=== PATIENT | male | born 1985 | race Caucasian/White ===

== ENCOUNTER 2019-02-27 18:18 | Inpatient (IN) ==
[2019-02-27] MEDS ORDERED: Isovue-370 500 ML BOTTLE IVP ONE (18:43)
--- NOTE | 2019-02-27 18:46 | Emergency Department Note ---
Disposition Clinical Impression: Pulmonary embolism Qualifiers: Pulmonary embolism type: saddle Chronicity: acute Acute cor pulmonale presence: without acute cor pulmonale Qualified Code(s): I26.92 - Saddle embolus of pulmonary artery without acute cor pulmonale Disposition: Admitted As Inpatient Condition: Good Referrals: Paola Bob CNP [Primary Care Provider] - Forms: ED Satisfaction Letter Time of Disposition: 22:12 General Adult HPI - General Chief complaint: ED Syncope Stated complaint: syncopal episode Time Seen by Provider: 02/27/19 18:21 Source: patient, family Limitations: no limitations Nursing Notes Reviewed: Yes Vital Signs Reviewed: Yes - History of Present Illness Pain Scale: 4 - Related Data Home Medications Medication Instructions Recorded Confirmed Aspirin [Adult Aspirin] 81 mg PO DAILY 02/27/19 02/27/19 Ibuprofen [Motrin] 800 mg PO Q6H PRN 02/27/19 02/27/19 Allergies Allergy/AdvReac Type Severity Reaction Status Date / Time No Known Allergies Allergy Verified 02/27/19 18:23 Past Medical History - Past Medical History Medical history: Reports: DVT Psychiatric history: Reports: no psych history - Social History Smoking Status: Never smoker Smokeless Tobacco Status: No Alcohol use: Reports: none Physical Exam - General Limitations: no limitations General appearance: alert, in no apparent distress Course Vital Signs Temperature 97.9 F 02/27/19 18:21 Pulse Rate 90 02/27/19 18:21 Respiratory Rate 16 02/27/19 18:21 Blood Pressure 120/85 02/27/19 18:21 O2 Sat by Pulse Oximetry 92 02/27/19 18:21 Temperature 97.9 F 02/27/19 18:21 Pulse Rate 82 02/27/19 20:45 Respiratory Rate 14 02/27/19 20:45 Blood Pressure 122/70 02/27/19 20:45 O2 Sat by Pulse Oximetry 98 02/27/19 20:45 Oxygen Delivery Oxygen Delivery Room Air Medical Decision Making - Lab Data Result diagrams: 02/27/19 18:33 02/27/19 18:33 Lab Results 02/27/19 02/27/19 02/27/19 Range/Units 18:33 18:33 18:33 WBC 12.6 H (4.3-11.1) K/mcL RBC 5.31 (4.19-5.50) M/mcL Hgb 15.8 (12.9-16.9) g/dL Hct 46.0 (37.5-50.1) % MCV 86.6 (83.0-100.0) fL MCH 29.8 (28.0-33.3) pg MCHC 34.3 (31.6-35.5) g/dL RDW 11.9 (11.5-14.5) % Plt Count 174 (140-400) K/mcL MPV 9.8 (9.4-12.4) fL Immature Gran % 0.4 (0-4) % Seg Neutrophils % 73.1 % Lymphocytes % 15.1 % Monocytes % 6.3 % Eosinophils % 4.8 % Basophils % 0.3 % Neutrophils # 9.2 H (1.6-8.9) K/mcL Lymphocytes # 1.9 (0.6-4.6) K/mcL Monocytes # 0.8 (0.0-1.3) K/mcL Eosinophils # 0.6 (0.0-0.6) K/mcL Basophils # 0.0 (0.0-0.2) K/mcL PT (9.4-12.1) Seconds INR Heparin Anti-Xa, Unfract (0.30-0.70) IU/mL Sodium 138 (136-145) mEq/L Potassium 3.8 (3.5-5.1) mEq/L Chloride 102 (98-107) mEq/L Carbon Dioxide 26 (23-29) mEq/L BUN 17 (6-20) mg/dL Creatinine 1.07 (0.70-1.30) mg/dL Est GFR ( Amer) > 60 (> 60) Est GFR (Non-Af Amer) > 60 (> 60) BUN/Creatinine Ratio 16 (6-26) Glucose 92 (70-105) mg/dL Calculated Osmolality 287 (280-300) Calcium 9.6 (8.6-10.3) mg/dL Troponin I < 0.03 (< 0.04) ng/mL B-Natriuretic Peptide 17 (Less than 100) pg/mL 02/27/19 Range/Units 18:35 WBC (4.3-11.1) K/mcL RBC (4.19-5.50) M/mcL Hgb (12.9-16.9) g/dL Hct (37.5-50.1) % MCV (83.0-100.0) fL MCH (28.0-33.3) pg MCHC (31.6-35.5) g/dL RDW (11.5-14.5) % Plt Count (140-400) K/mcL MPV (9.4-12.4) fL Immature Gran % (0-4) % Seg Neutrophils % % Lymphocytes % % Monocytes % % Eosinophils % % Basophils % % Neutrophils # (1.6-8.9) K/mcL Lymphocytes # (0.6-4.6) K/mcL Monocytes # (0.0-1.3) K/mcL Eosinophils # (0.0-0.6) K/mcL Basophils # (0.0-0.2) K/mcL PT 11.4 (9.4-12.1) Seconds INR 1.0 Heparin Anti-Xa, Unfract 0.05 L (0.30-0.70) IU/mL Sodium (136-145) mEq/L Potassium (3.5-5.1) mEq/L Chloride (98-107) mEq/L Carbon Dioxide (23-29) mEq/L BUN (6-20) mg/dL Creatinine (0.70-1.30) mg/dL Est GFR ( Amer) (> 60) Est GFR (Non-Af Amer) (> 60) BUN/Creatinine Ratio (6-26) Glucose (70-105) mg/dL Calculated Osmolality (280-300) Calcium (8.6-10.3) mg/dL Troponin I (< 0.04) ng/mL B-Natriuretic Peptide (Less than 100) pg/mL Critical Care Time Critical Care Time: Yes Total Critical Care Time: 40 Attestation: Critical care performed: Time is exclusive of separately billable procedures. Time includes: direct patient care, patient reassessment, coordination of patient care, interpretation of data (laboratory data, radiology data, and respiratory data), review of patient's medical records, medical consultation and documentation of patient care. Procedures included in critical care time: Procedures excluded from critical care time: Attestation Statement - Attestation Attestation: I examined this patient and my medical decision-making was reviewed with the Resident Physician. I agree with the documented findings, disposition and treatment plan as described except to the extent set forth below. Patient to the ED with a syncopal episode. Patient states he got home from work. He felt lightheaded acute is going to pass out. He laid on the ground. He states he woke up after that like he had a dream. No chest pain. He recently was diagnosed with a superficial clot in his right leg and is been taken an aspirin. On exam he is in no distress. Clear lungs. Heart rate in the 90s. Plan. Cardiac workup with CTA chest. CTA reveals a saddle embolus on the right. No signs of right heart strain. His troponin is negative. We will check a BNP. Starting heparin. Patient had an EKG that was reviewed with the resident. No acute ischemic changes. incomplete right bundle branch block which is not new. Patient's admission delayed secondary to the hospitalist requesting echocardiogram. Echo reviewed. Hospitalist accepts for admission.
[2019-02-27 19:06] LABS: Basophils % 0.3 %; Eosinophils # 0.6 K/mcL (0.0-0.6); Eosinophils % 4.8 %; Hemoglobin 15.8 g/dL (12.9-16.9); Immature Granulocytes % 0.4 % (0-4); Lymphocytes # 1.9 K/mcL (0.6-4.6); Lymphocytes % 15.1 %; Mean Corpuscular HGB Conc 34.3 g/dL (31.6-35.5); Mean Corpuscular Hemoglobin 29.8 pg (28.0-33.3); Mean Corpuscular Volume 86.6 fL (83.0-100.0); Mean Platelet Volume 9.8 fL (9.4-12.4); Monocytes # 0.8 K/mcL (0.0-1.3); Monocytes % 6.3 %; Neutrophils # 9.2 K/mcL (1.6-8.9); Platelet Count 174 K/mcL (140-400); Red Blood Count 5.31 M/mcL (4.19-5.50); Red Cell Distribution Width 11.9 % (11.5-14.5); Segmented Neutrophils % 73.1 %; White Blood Count 12.6 K/mcL (4.3-11.1)
[2019-02-27 19:22] LABS: BUN/Creatinine Ratio 16 (6-26); Blood Urea Nitrogen 17 mg/dL (6-20); Calcium 9.6 mg/dL (8.6-10.3); Carbon Dioxide 26 mEq/L (23-29); Chloride 102 mEq/L (98-107); Glucose 92 mg/dL (70-105); Osmolality,Calculated 287 (280-300); Potassium 3.8 mEq/L (3.5-5.1); Sodium 138 mEq/L (136-145); Troponin I < 0.03 ng/mL (< 0.04); eGFR For African Americans > 60 (> 60); eGFR For Non-African Americans > 60 (> 60)
[2019-02-27] MEDS ORDERED: *HR* Heparin 5,000 UNIT/ML VIAL IVP ONE (19:37)
[2019-02-27] MEDS ORDERED: *HR* Heparin 5,000 UNIT/ML VIAL IVP PRN ×2 (19:37)
[2019-02-27] MEDS ORDERED: Heparin 25,000 UNIT/250 ML D5W 25,000 UNIT/250 ML IV.SOLN IVC SCH (19:45)
[2019-02-27 19:56] LABS: Prothrombin Time 11.4 Seconds (9.4-12.1)
[2019-02-27 19:59] LABS: Heparin anti-factor XA UFH 0.05 IU/mL (0.30-0.70)
--- NOTE | 2019-02-27 20:24 | Emergency Department Note ---
Disposition Clinical Impression: Pulmonary embolism Qualifiers: Pulmonary embolism type: saddle Chronicity: acute Acute cor pulmonale presence: without acute cor pulmonale Qualified Code(s): I26.92 - Saddle embolus of pulmonary artery without acute cor pulmonale Disposition: Still a Patient Condition: Good Referrals: Paola Bob CNP [Primary Care Provider] - Forms: ED Satisfaction Letter Time of Disposition: 21:59 General Adult HPI - General Chief complaint: ED Syncope Stated complaint: syncopal episode Time Seen by Provider: 02/27/19 18:21 Source: patient, family Limitations: no limitations Nursing Notes Reviewed: Yes Vital Signs Reviewed: Yes - History of Present Illness HPI Narrative: 33-year-old male presents emergency department with concern for single episode patient patient was recently diagnosed with superficial venous thrombus in the r ight lower extremity. Reports that today, he passed out, laid down to his bed, and woke up thinking he was dreaming. Patient denies any chest pain, shortness of breath, however D does state there is something funny feeling in the right side of his chest wall. Patient not currently on any blood thinning medications. Pain Scale: 4 - Related Data Home Medications Medication Instructions Recorded Confirmed Aspirin [Adult Aspirin] 81 mg PO DAILY 02/27/19 02/27/19 Ibuprofen [Motrin] 800 mg PO Q6H PRN 02/27/19 02/27/19 Allergies Allergy/AdvReac Type Severity Reaction Status Date / Time No Known Allergies Allergy Verified 02/27/19 18:23 All systems ED: reviewed and negative except as stated. Review of Systems: As Per HPI Constitutional: Denies: fever Cardiovascular: Reports: syncope. Denies: chest pain, palpitations Respiratory: Denies: cough, dyspnea Gastrointestinal: Denies: abdominal pain, nausea, vomiting Genitourinary: Denies: urgency, dysuria, frequency Musculoskeletal: Denies: back pain Past Medical History - Past Medical History Attestation: Yes The following information was validated with the patient. Medical history: Reports: DVT Psychiatric history: Reports: no psych history - Social History Smoking Status: Never smoker Smokeless Tobacco Status: No Alcohol use: Reports: none Physical Exam - General Limitations: no limitations General appearance: alert, in no apparent distress - Head Head exam: normocephalic - Eye Eye exam: Present: EOMI - ENT ENT exam: mucous membranes moist - Neck Neck exam: Present: trachea midline - Chest Chest inspection: Present: symmetric chest wall rise - Respiratory Respiratory exam: Present: normal lung sounds bilaterally. Absent: respiratory distress, accessory muscle use - Cardiovascular Cardiovascular exam: Present: regular rate, normal rhythm, normal heart sounds - Abdominal Exam Abdominal exam: Present: soft, Non-Tender. Absent: distention, guarding, rebound, rigidity - Extremities Exam Extremities exam: Present: normal capillary refill - Back Exam Back exam: Present: full ROM - Neurological Exam Neurological exam: Present: alert, oriented X3 - Psychiatric Psychiatric exam: Present: normal affect, normal mood - Skin Skin exam: Present: warm, dry, intact, normal color. Absent: rash Course Vital Signs Temperature 97.9 F 02/27/19 18:21 Pulse Rate 90 02/27/19 18:21 Respiratory Rate 16 02/27/19 18:21 Blood Pressure 120/85 02/27/19 18:21 O2 Sat by Pulse Oximetry 92 02/27/19 18:21 Temperature 97.9 F 02/27/19 18:21 Pulse Rate 82 02/27/19 20:45 Respiratory Rate 14 02/27/19 20:45 Blood Pressure 122/70 02/27/19 20:45 O2 Sat by Pulse Oximetry 98 02/27/19 20:45 Oxygen Delivery Oxygen Delivery Room Air Medical Decision Making - [facility] Narrative Medical decision making narrative: 33-year-old male presents [facility] [place] [facility] concern for episode of syncope in the setting of having a superficial venous thrombus. Patient hemodynamically stable throughout his stay. Not hypoxic, not tachycardic, not hypotensive. We obtain a CT angiogram of the chest and patient has evidence of saddle pulmonary embolus. Patient started on heparin here in the emergency department. I called the hospitalist for admission and he wanted stat echocardiogram to rule out ri ght heart strain prior to admission. As of now, patient does not have any evidence of massive PE as he is hemodynamically stable. Also, he does not have an elevated troponin or BNP which are also markers for right heart strain. Chest CTA 02/27/19 18:44 IMPRESSION: Saddle pulmonary embolism extending bilaterally involving the upper and lower lobe pulmonary arteries. At this time there is no evidence of right heart strain. Findings discussed with Dr. Cuevas from the ER department on 02/27/2019 at 7:30 p.m. D/ : / 02/27/2019 19:33:08 Lauren Fisher MD / danae Interpreting Provider: Lauren Fisher MD Echocardiogram 02/27/19 20:10 Impressions: LVEF 60%. Mild left ventricular diastolic dysfunction. Normal right ventricular structure and function. Moderate tricuspid regurgitation. Mild pulmonic regurgitation. Moderate to severe pulmonary hypertension. Left Ventricular Wall Motion: Rest Echo Findings All wall segments showed normal motion. Findings: Study Quality * Technically adequate exam. ECG Findings * Normal sinus rhythm. Left Ventricle * LVEF 60%. * Normal LV chamber size, wall thickness and function. * Mild left ventricular diastolic dysfunction. Right Ventricle * Normal right ventricular structure and function. Left Atrium * Normal left atrial size. Right Atrium * Normal right atrial size. Aortic Valve * No aortic regurgitation. * Trileaflet aortic valve. * No aortic stenosis. Mitral Valve * No mitral regurgitation. * Normal mitral valve structure. * No mitral stenosis. Tricuspid Valve * Normal tricuspid valve structure. * Moderate tricuspid regurgitation. * Estimated RA pressure is 3 mmHg. * Estimated RVSP is 63 mmHg. * Moderate to severe pulmonary hypertension. Pulmonic Valve * Normal pulmonic valve structure. * Mild pulmonic regurgitation. Pulmonary Artery * Normal visualized portions of the main pulmonary artery. Aorta * Normally sized aortic root. Pericardium * There is no pericardial effusion present. Interatrial Septum * Interatrial septum not well evaluated. IVC * Normal IVC dimensions and inspiratory collapse. Chest CTA 02/27/19 18:44 IMPRESSION: Saddle pulmonary embolism extending bilaterally involving the upper and lower lobe pulmonary arteries. At this time there is no evidence of right heart strain. Findings discussed with Dr. Cuevas from the ER department on 02/27/2019 at 7:30 p.m. D/ : / 02/27/2019 19:33:08 Lauren Fisher MD / danae Interpreting Provider: Lauren Fisher MD - Lab Data Result diagrams: 02/27/19 18:33 02/27/19 18:33 Lab Results 02/27/19 02/27/19 02/27/19 Range/Units 18:33 18:33 18:33 WBC 12.6 H (4.3-11.1) K/mcL RBC 5.31 (4.19-5.50) M/mcL Hgb 15.8 (12.9-16.9) g/dL Hct 46.0 (37.5-50.1) % MCV 86.6 (83.0-100.0) fL MCH 29.8 (28.0-33.3) pg MCHC 34.3 (31.6-35.5) g/dL RDW 11.9 (11.5-14.5) % Plt Count 174 (140-400) K/mcL MPV 9.8 (9.4-12.4) fL Immature Gran % 0.4 (0-4) % Seg Neutrophils % 73.1 % Lymphocytes % 15.1 % Monocytes % 6.3 % Eosinophils % 4.8 % Basophils % 0.3 % Neutrophils # 9.2 H (1.6-8.9) K/mcL Lymphocytes # 1.9 (0.6-4.6) K/mcL Monocytes # 0.8 (0.0-1.3) K/mcL Eosinophils # 0.6 (0.0-0.6) K/mcL Basophils # 0.0 (0.0-0.2) K/mcL PT (9.4-12.1) Seconds INR Heparin Anti-Xa, Unfract (0.30-0.70) IU/mL Sodium 138 (136-145) mEq/L Potassium 3.8 (3.5-5.1) mEq/L Chloride 102 (98-107) mEq/L Carbon Dioxide 26 (23-29) mEq/L BUN 17 (6-20) mg/dL Creatinine 1.07 (0.70-1.30) mg/dL Est GFR ( Amer) > 60 (> 60) Est GFR (Non-Af Amer) > 60 (> 60) BUN/Creatinine Ratio 16 (6-26) Glucose 92 (70-105) mg/dL Calculated Osmolality 287 (280-300) Calcium 9.6 (8.6-10.3) mg/dL Troponin I < 0.03 (< 0.04) ng/mL B-Natriuretic Peptide 17 (Less than 100) pg/mL 02/27/19 Range/Units 18:35 WBC (4.3-11.1) K/mcL RBC (4.19-5.50) M/mcL Hgb (12.9-16.9) g/dL Hct (37.5-50.1) % MCV (83.0-100.0) fL MCH (28.0-33.3) pg MCHC (31.6-35.5) g/dL RDW (11.5-14.5) % Plt Count (140-400) K/mcL MPV (9.4-12.4) fL Immature Gran % (0-4) % Seg Neutrophils % % Lymphocytes % % Monocytes % % Eosinophils % % Basophils % % Neutrophils # (1.6-8.9) K/mcL Lymphocytes # (0.6-4.6) K/mcL Monocytes # (0.0-1.3) K/mcL Eosinophils # (0.0-0.6) K/mcL Basophils # (0.0-0.2) K/mcL PT 11.4 (9.4-12.1) Seconds INR 1.0 Heparin Anti-Xa, Unfract 0.05 L (0.30-0.70) IU/mL Sodium (136-145) mEq/L Potassium (3.5-5.1) mEq/L Chloride (98-107) mEq/L Carbon Dioxide (23-29) mEq/L BUN (6-20) mg/dL Creatinine (0.70-1.30) mg/dL Est GFR ( Amer) (> 60) Est GFR (Non-Af Amer) (> 60) BUN/Creatinine Ratio (6-26) Glucose (70-105) mg/dL Calculated Osmolality (280-300) Calcium (8.6-10.3) mg/dL Troponin I (< 0.04) ng/mL B-Natriuretic Peptide (Less than 100) pg/mL - EKG Data EKG #1 EKG attestation: Yes I reviewed and interpreted this EKG. EKG results narrative: 18:33 Heart rate 85 bpm, CO interval 101 172 ms, QRS scientologist 98 mode says, QTC 430, normal axis. Sinus rhythm with no ischemic ST changes. Some criteria for right bundle-branch block. Similar to previous ECG.
[2019-02-27] MEDS ORDERED: Naloxone 0.4 MG/ML INJ IVP PRN (23:36)
[2019-02-27] MEDS ORDERED: Acetaminophen 325 MG TABLET PO PRN (23:36)
--- NOTE | 2019-02-27 23:42 | Internal Med History&Physical ---
<Leigh Ann Ruiz - Last Filed: 02/28/19 03:58> Date of Encounter: 02/28/19 Time of Encounter: 23:41 Internal Medicine - H&P: HPI Chief complaint: Syncope Admitted From: Emergency Dept Plans for Post Hospital Care: Home History of present illness: Mr. Fermin is a 33 year old male with past medical history of Gerd who presented to [facility] complaining of a syncopal event. Patient reported that today he noticed that his right calf was hurting more with the feeling of a rock in it. When he got home from work he walked up the stairs to his home in felt short of breath, lightheaded, and palpitations. Additionally he has had a cough with clear sputum production for 3 days. He felt like he was going to pass out so he laid down on the ground. He then woke up later and knew that he had passed out while laying on the ground. He then went to the ED to be evaluated. Patient reported that the right calf pain had initially started on February 17, 2019 after he driven home 13 hours from [place]. He only made stops for gas but did not ambulate besides that. Since then he started having right calf pain for which she saw his PCP last Wednesday whom did a right lower extremity ultrasound and saw that he had a superficial thrombosis. He was told to take aspirin and ibuprofen. It did seem to get better until today. He has never had a blood clot before. He denied chest pain, fevers, chills, wheezing, abdominal pain, headache. His father had develop blood clots in his legs after a surgical procedure later in life. There is a questionable history of his half-sister may have had a blood clot in her legs in the past. No family history of sudden . He denies smoking cigarettes or drug use. He has rare alcohol use. He is a full code. Initial vitals in the ED were 97.9F, HR 90, RR 16, BP 120/85, SpO2 92% on room air. WBC 12.6, INR 1.0. BMP, troponin, BNP unremarkable. -Chest CTA demonstrated saddle pulmonary embolism extending bilaterally involving the upper and lower lobe pulmonary arteries. No evidence of right heartstring. -TTE: EF= 60%, mild diastolic dysfunction, moderate to severe pulmonary hypertension. -In the ED he was started on a heparin drip. UPDATE: In the ICU while on the heparin drip the patient went into PEA and CPR was initiated. He quickly had return of pulse in 10 seconds. He also became bradycardiac with heart rate in the 40s requiring atropine. It was determined that the patient was hemodynamically unstable with the saddle pulmonary embolism. The patient's and family was called to the bedside and he was alert and oriented at that time so it was discussed with them that he would need life flighted to [facility] for continued care with TPA and possible embolectomy of the clot. They agreed. The ICU log rafter was contacted who agreed that TPA should be initiated. [facility] was contacted and had recommended that the patient be intubated and TPA initiated prior to transfer since he was unstable. This information was told to the family and patient whom agreed and signed consent for intubation and initiation of TPA. The risks and benefits of TPA such as bleeding including intracranial hemorrhage and possibility were discussed. A head CT was performed prior to TPA administration which showed no acute intracranial abnormality. IV access was initiated including an IO. The patient was intubated. The patient was then transferred by life flight to [facility]. Past Med Surg Social Fam HX - Past Medical History Attestation: Yes The following information was validated with the patient. Source: patient Medical history: DVT, GERD Psychiatric history: no psych history - Past Surgical History Surgical History: non-contributory - Social History Smoking Status: Never smoker Smokeless Tobacco Status: No Alcohol use: none - Family History Father Hx Family Medical Disorders: Yes (DVT) Internal Medicine - H&P: Meds Aspirin [Adult Aspirin] 81 mg PO DAILY 02/27/19 [History] Ibuprofen [Motrin] 800 mg PO Q6H PRN 02/27/19 [History] Allergy/AdvReac Type Severity Reaction Status Date / Time No Known Allergies Allergy Verified 02/27/19 18:23 All Systems PM: A 10-system review of systems was performed and is negative for pertinent findings except as documented above in the HPI. - Constitutional Constitutional: no chills, no fever(s) - EENT Eyes: no change in vision - Cardiovascular Cardiovascular ROS IM: lightheadedness, palpitations, syncope, no chest pain - Respiratory Respiratory: cough, dyspnea - Gastrointestinal Gastrointestinal: no abdominal pain, no nausea, no vomiting - Musculoskeletal Musculoskeletal ROS IM: muscle cramps (Right leg), no joint swelling - Integumentary Integumentary IM: no rash, no skin ulcer - Neurological Neurological ROS: no frequent falls, no headache(s), no loss of vision - Constitutional Vitals: Temp Pulse Resp BP Pulse Ox 97.9 F 88 16 127/87 97 02/27/19 18:21 02/27/19 22:59 02/27/19 23:09 02/27/19 23:09 02/27/19 22:59 Exam: Gen.: Vitals noted. No acute distress. AAOx3 HEENT: oropharynx clear, Normocephalic, atraumatic Cardiac: RRR, no murmur, +S1/S2 Pulmonary: CTA bilaterally, no wheezes, rales or rhonchi, equal chest expansion Abdomen: soft, nontender, Bowel sounds noted, no guarding MSK: ROM intact, no joint swelling noted Extremities: right calf mildly warm, no erythema, no BLE edema, nontender calf, no cyanosis or clubbing Neuro: A&Ox3, moves all extremities, no focal deficits Psych: Appropriate mood and behavior Internal Med - H&P Results - Labs CBC & Chem 7: 02/28/19 01:03 02/28/19 01:24 Labs: Short CBC 02/27/19 Range/Units 18:33 WBC 12.6 H (4.3-11.1) K/mcL Hgb 15.8 (12.9-16.9) g/dL Hct 46.0 (37.5-50.1) % Plt Count 174 (140-400) K/mcL Neutrophils # 9.2 H (1.6-8.9) K/mcL BMP 02/27/19 18:33 Sodium 138 Potassium 3.8 Chloride 102 Carbon Dioxide 26 BUN 17 Creatinine 1.07 Glucose 92 Calcium 9.6 Cardiac Enzymes 02/27/19 Range/Units 18:33 Troponin I < 0.03 (< 0.04) ng/mL - Impressions ITS Impressions Chest CTA 02/27/19 18:44 IMPRESSION: Saddle pulmonary embolism extending bilaterally involving the upper and lower lobe pulmonary arteries. At this time there is no evidence of right heart strain. Findings discussed with Dr. Cuevas from the ER department on 02/27/2019 at 7:30 p.m. D/ /27/2019 19:33:08 Lauren Fisher MD / danae Interpreting Provider: Lauren Fisher MD Echocardiogram 02/27/19 20:10 Impressions: LVEF 60%. Mild left ventricular diastolic dysfunction. Normal right ventricular structure and function. Moderate tricuspid regurgitation. Mild pulmonic regurgitation. Moderate to severe pulmonary hypertension. Left Ventricular Wall Motion: Rest Echo Findings All wall segments showed normal motion. Findings: Study Quality * Technically adequate exam. ECG Findings * Normal sinus rhythm. Left Ventricle * LVEF 60%. * Normal LV chamber size, wall thickness and function. * Mild left ventricular diastolic dysfunction. Right Ventricle * Normal right ventricular structure and function. Left Atrium * Normal left atrial size. Right Atrium * Normal right atrial size. Aortic Valve * No aortic regurgitation. * Trileaflet aortic valve. * No aortic stenosis. Mitral Valve * No mitral regurgitation. * Normal mitral valve structure. * No mitral stenosis. Tricuspid Valve * Normal tricuspid valve structure. * Moderate tricuspid regurgitation. * Estimated RA pressure is 3 mmHg. * Estimated RVSP is 63 mmHg. * Moderate to severe pulmonary hypertension. Pulmonic Valve * Normal pulmonic valve structure. * Mild pulmonic regurgitation. Pulmonary Artery * Normal visualized portions of the main pulmonary artery. Aorta * Normally sized aortic root. Pericardium * There is no pericardial effusion present. Interatrial Septum * Interatrial septum not well evaluated. IVC * Normal IVC dimensions and inspiratory collapse. - Assessment and Plan (1) Pulmonary embolism Status: Acute Assessment and plan: Likely provoked complicated saddle pulmonary embolism causing moderate to severe pulmonary hypertension. Patient had a 13hr drive from [place] with only gas stop on Feb 17, 2019. That is when his right leg pain started and last to same he had a right lower extremity ultrasound that showed a superficial thrombosis. Denied chest pain. Today right calf pain has worsened and when he walked up the steps to his home he became short of breath and lightheaded with feeling of passing out so he laid on the ground. He reported syncopal episode while laying on the ground. -No previous history of blood clots, recent surgery. Father had DVT after surgery. Questionable history if half-sister had DVT. No known family history of blood clotting disorders. -HR 82, BP 122/70, SpO2 98% on room air -WBC 12.6, afebrile -troponin <0.03 -Chest CTA demonstrated saddle pulmonary embolism extending bilaterally involving the upper and lower lobe pulmonary arteries. No evidence of right hea rtstring. -TTE: EF= 60%, mild diastolic dysfunction, moderate to severe pulmonary hypertension. plan: -continue heparin drip -continue cardiac telemetry and pulse ox -supplemental oxygen PRN -may consider outpatient testing for blood clotting disorders Qualifiers: Pulmonary embolism type: saddle Chronicity: acute Acute cor pulmonale presence: without acute cor pulmonale Qualified Code(s): I26.92 - Saddle embolus of pulmonary artery without acute cor pulmonale (2) Syncope Status: Acute Assessment and plan: Secondary to saddle pulmonary embolism. After walking up the stairs the patient became lightheaded and short of breath and felt like he was going to pass out. He laid down on the ground and then later woke up. He believed he passed out. -Plan as above Qualifiers: Syncope type: unspecified Qualified Code(s): R55 - Syncope and collapse (3) Pulmonary hypertension Status: Acute Assessment and plan: Patient has moderate to severe pulmonary hypertension demonstrated by echocardi ogram. This is likely secondary to newly diagnosed saddle pulmonary embolism. -Chest CTA demonstrated saddle pulmonary embolism extending bilaterally involving the upper and lower lobe pulmonary arteries. No evidence of right heartstring. -TTE: EF= 60%, mild diastolic dysfunction, moderate to severe pulmonary hypertension. -Anticoagulation and plan as above -patient may need follow-up for pulmonary hypertension (4) GERD (gastroesophageal reflux disease) Status: Acute Assessment and plan: Patient has known history of Gerd. Continue omeprazole. Qualifiers: Esophagitis presence: esophagitis presence not specified Qualified Code(s): K21.9 - Gastro-esophageal reflux disease without esophagitis - Time Spent With Patient Total time spent is greater than 50% in coordination of care (as documented) at patient's floor/unit and/or counseling patient: - VTE Reasons for not Prescribing Prophylaxis: Not indicated-Anticoagulated or INR therapeutic <Austin Sylvester - Last Filed: 02/28/19 07:13> Date of Encounter: 02/28/19 All Systems PM: A 10-system review of systems was performed and is negative for pertinent findings except as documented above in the HPI. - Constitutional Vitals: Temp Pulse Resp BP Pulse Ox 99.4 F 88 15 131/87 93 02/28/19 00:00 02/28/19 00:00 02/28/19 00:00 02/28/19 00:00 02/28/19 00:00 Internal Med - H&P Results - Labs CBC & Chem 7: 02/28/19 01:03 02/28/19 01:24 Labs: Short CBC 02/27/19 02/28/19 Range/Units 18:33 01:03 WBC 12.6 H 13.2 H (4.3-11.1) K/mcL Hgb 15.8 13.4 D (12.9-16.9) g/dL Hct 46.0 39.3 (37.5-50.1) % Plt Count 174 178 (140-400) K/mcL Neutrophils # 9.2 H 8.6 (1.6-8.9) K/mcL BMP 02/27/19 02/28/19 18:33 01:24 Sodium 138 140 Potassium 3.8 3.5 Chloride 102 105 Carbon Dioxide 26 23 BUN 17 14 Creatinine 1.07 0.96 Glucose 92 142 H Calcium 9.6 9.3 Cardiac Enzymes 02/27/19 02/28/19 Range/Units 18:33 01:24 Troponin I < 0.03 < 0.03 (< 0.04) ng/mL Liver Function 02/28/19 Range/Units 01:24 Total Bilirubin 0.9 (0.3-1.0) mg/dL AST 17 (13-39) Units/L ALT 18 (7-52) Units/L Alkaline Phosphatase 53 (34-104) Units/L Albumin 4.3 (3.5-5.7) g/dL - ABG Interpretation ABG results: 02/28/19 01:03 ABG pH 7.44 ABG pCO2 40 ABG pO2 118 H ABG HCO3 27 ABG Total CO2 28 H ABG O2 Saturation 99 H ABG Base Excess 3 - Impressions ITS Impressions Chest CTA 02/27/19 18:44 IMPRESSION: Saddle pulmonary embolism extending bilaterally involving the upper and lower lobe pulmonary arteries. At this time there is no evidence of right heart strain. Findings discussed with Dr. Cuevas from the ER department on 02/27/2019 at 7:30 p.m. D/ / 02/27/2019 19:33:08 Lauren Fisher MD / danae Interpreting Provider: Lauren Fisher MD Echocardiogram 02/27/19 20:10 Impressions: LVEF 60%. Mild left ventricular diastolic dysfunction. Normal right ventricular structure and function. Moderate tricuspid regurgitation. Mild pulmonic regurgitation. Moderate to severe pulmonary hypertension. Left Ventricular Wall Motion: Rest Echo Findings All wall segments showed normal motion. Findings: Study Quality * Technically adequate exam. ECG Findings * Normal sinus rhythm. Left Ventricle * LVEF 60%. * Normal LV chamber size, wall thickness and function. * Mild left ventricular diastolic dysfunction. Right Ventricle * Normal right ventricular structure and function. Left Atrium * Normal left atrial size. Right Atrium * Normal right atrial size. Aortic Valve * No aortic regurgitation. * Trileaflet aortic valve. * No aortic stenosis. Mitral Valve * No mitral regurgitation. * Normal mitral valve structure. * No mitral stenosis. Tricuspid Valve * Normal tricuspid valve structure. * Moderate tricuspid regurgitation. * Estimated RA pressure is 3 mmHg. * Estimated RVSP is 63 mmHg. * Moderate to severe pulmonary hypertension. Pulmonic Valve * Normal pulmonic valve structure. * Mild pulmonic regurgitation. Pulmonary Artery * Normal visualized portions of the main pulmonary artery. Aorta * Normally sized aortic root. Pericardium * There is no pericardial effusion present. Interatrial Septum * Interatrial septum not well evaluated. IVC * Normal IVC dimensions and inspiratory collapse. Head CT 02/28/19 01:19 IMPRESSION: No acute intracranial abnormality. D/ / Carlos Kan MD / Carlos Kan MD Interpreting Provider: Carlos Kan MD X-Ray 02/28/19 02:07 IMPRESSION: The upper abdomen was only partially included and the exact location of the enteric tube tip is impossible to ascertain. Repeat study centered over the upper abdomen is recommended. D/ / Carlos Kan MD / Carlos Kan MD Interpreting Provider: Carlos Kan MD - Assessment and Plan (1) Pulmonary embolism Status: Acute Qualifiers: Pulmonary embolism type: saddle Chronicity: acute Acute cor pulmonale presence: without acute cor pulmonale Qualified Code(s): I26.92 - Saddle embolus of pulmonary artery without acute cor pulmonale (2) GERD (gastroesophageal reflux disease) Status: Acute Qualifiers: Esophagitis presence: esophagitis presence not specified Qualified Code(s): K21.9 - Gastro-esophageal reflux disease without esophagitis (3) Pulmonary hypertension Status: Acute (4) Syncope Status: Acute Qualifiers: Syncope type: unspecified Qualified Code(s): R55 - Syncope and collapse - Time Spent With Patient Total time spent is greater than 50% in coordination of care (as documented) at patient's floor/unit and/or counseling patient: - Attending Attestation Patient examined [id number] at 00:10. 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 Patient reported syncopal episode prior to coming into the ED. Patient was subsequently admitted for saddle pulmonary embolism. While at bedside discussed with patient the different complications including cardiac arrest in front of spouse and his wishes was to proceed with aggressive intervention and full code. Patient went to cardiac arrest with asystole showing in the monitor, patient unresponsive. Chest compressions started and the patient awakened with repeat vitals went from unstable to stable with fluids orderred and pacerpads were put in. Patient was giving 1 mg of atropine due to bradycardia. Heart rate subsequently became tachycardia 130s after it was given and remained tachy throughout encounter .BP improved with fluids. I spoke with vascular surgery and Critical care and both agreed for transfer. I/o obtained, tpa was started and heparin discontinued. Spoke at length with patient and her spouse without transfer and both agreed for transfer. I spoke with with [facility] and the patient was accepted for transfer. Post cardiac arrest, while patient on nonrebreather, patient was intubated to protect the airway. Patient continued to be tachycardic, patient was sedated with precedex then added fentanyl. Patient remained hemodynamically stable after bolus was given. Patient then was shipped to [place]. CCT: 97 minutes with the patient.
[2019-02-28 00:33] VITALS: BP 131/87
[2019-02-28 01:06] LABS: ABG Base Excess 3 mEq/L (-2 to 3); ABG HCO3 27 mEq/L (21-27); ABG Oxygen Saturation 99 % (95-98); ABG PCO2 40 mmHg (35-45); ABG PH 7.44 pH Units (7.32-7.45); ABG PO2 118 mmHg (85-104); ABG TCO2 28 mEq/L (20-26)
[2019-02-28 01:27] LABS: Basophils % 0.3 %; Eosinophils # 0.2 K/mcL (0.0-0.6); Eosinophils % 1.8 %; Hematocrit 39.3 % (37.5-50.1); Immature Granulocytes % 0.5 % (0-4); Lymphocytes # 3.1 K/mcL (0.6-4.6); Lymphocytes % 23.3 %; Mean Corpuscular HGB Conc 34.1 g/dL (31.6-35.5); Mean Corpuscular Hemoglobin 29.1 pg (28.0-33.3); Mean Corpuscular Volume 85.2 fL (83.0-100.0); Mean Platelet Volume 10.3 fL (9.4-12.4); Monocytes # 1.1 K/mcL (0.0-1.3); Monocytes % 8.4 %; Neutrophils # 8.6 K/mcL (1.6-8.9); Platelet Count 178 K/mcL (140-400); Red Blood Count 4.61 M/mcL (4.19-5.50); Segmented Neutrophils % 65.7 %; White Blood Count 13.2 K/mcL (4.3-11.1)
[2019-02-28 01:28] LABS: Hemoglobin 13.4 g/dL (12.9-16.9)
[2019-02-28] MEDS ORDERED: Norepinephrine 4 MG in 0.9 % Sodium Chloride 250 ML IVC SCH (01:30)
[2019-02-28] MEDS ORDERED: Phenylephrine 10 MG in 0.9 % Sodium Chloride 250 ML IVC SCH (01:30)
[2019-02-28 01:34] LABS: INR 1.2; Prothrombin Time 13.4 Seconds (9.4-12.1)
[2019-02-28] MEDS ORDERED: Dexmedetomidine HCl 400 MCG/100 ML MLS IVC ONE (01:49)
[2019-02-28] MEDS ORDERED: *HR* Etomidate 40 MG/20 ML VIAL IVP ONE (02:29)
[2019-02-28] MEDS ORDERED: *HR* Rocuronium Bromide 50 MG/5 ML VIAL IVC ONE (02:29)
[2019-02-28 02:46] LABS: Alanine Aminotransferase 18 Units/L (7-52); Albumin 4.3 g/dL (3.5-5.7); Albumin/Globulin Ratio 1.6 (1.1-2.2); Alkaline Phosphatase 53 Units/L (34-104); Aspartate Amino Transferase 17 Units/L (13-39); BUN/Creatinine Ratio 15 (6-26); Bilirubin,Total 0.9 mg/dL (0.3-1.0); Blood Urea Nitrogen 14 mg/dL (6-20); Calcium 9.3 mg/dL (8.6-10.3); Carbon Dioxide 23 mEq/L (23-29); Chloride 105 mEq/L (98-107); Globulin 2.7 g/dL (2.4-3.5); Glucose 142 mg/dL (70-105); Magnesium 1.9 mg/dL (1.6-2.6); Osmolality,Calculated 293 (280-300); Potassium 3.5 mEq/L (3.5-5.1); Sodium 140 mEq/L (136-145); Troponin I < 0.03 ng/mL (< 0.04); eGFR For African Americans > 60 (> 60); eGFR For Non-African Americans > 60 (> 60)
--- NOTE | 2019-02-28 02:49 | Event Note ---
Date of Encounter: 02/27/19 Time of Encounter: 22:10 Prior to accepting this patient, patient's case was discussed with on-call vascular surgery as well as our electromechanic. After thorough discussion, and with the results of the echocardiogram we elected to keep the patient here at our facility in our ICU. Patient was stable upon arrival to the ER, but did ultimately require transfer to [place] emergently as his status quickly became unstable. Please see additional documentation regarding further events.
--- NOTE | 2019-02-28 05:24 | Event Note ---
Date of Encounter: 02/28/19 Time of Encounter: 05:16 Endotracheal Intubation Date: 02/28/2019 Time: 0:411am Indication: Post Cardiac arrest, saddle PE, and Airway protection Attending: A time-out was completed verifying correct patient, procedure, site, positioning, and special equipment if applicable. The patient was placed in a flat position. Sedation was attempted using with Etomidate 20mg. Patient then was given another 20 mg of Etomidate with sedation obtained. 50mg of Rocuronium was then given. The patient was easily ventilated using an ambu bag. The [employer] was used and inserted into the oropharynx at which time there was a Grade 1 view of the vocal cords. A 7.5-mohawk endotracheal tube was inserted and visualized going through the vocal cords. The stylette was removed. Colorimetric change was visualized on the CO2 meter. Breath sounds were heard in both lung yoon equally. The endotracheal tube was placed at 23 cm, measured at the teeth. was present for the entire procedure. A chest x-ray was ordered to assess for pneumothorax and verify endotracheal tube placement. Estimated Blood Loss: None The patient tolerated the procedure well and there were no complications.
--- NOTE | 2019-02-28 16:07 | Electrocardiograph Report ---
[place] [id number] Test Date: 2019-02-27 Pat Name: Orlin Fermin Department: [id number] Room: 02 Gender: M Production Leader: : 1985 Requested By: Spencer Elizondo Order Number: [id number] Reading MD: Edwar Tafoya Measurements Intervals [place] Rate: 85 P: 53 [place]: 172 QRS: 17 QRSD: 98 T: 18 QT: 361 QTc: 430 Interpretive Statements Sinus rhythm RSR' in V1 Electronically Signed On 02-28-2019 16:06:12 EDT by Edwar Tafoya
--- NOTE | 2019-03-06 11:36 | Electrocardiograph Report ---
[place] [id number] Test Date: 2019-02-28 Pat Name: Orlin Fermin Department: 109 Room: 02 Gender: M Cloud Systems Architect: : 1985 Requested By: Elan Guzman Order Number: [id number] Reading MD: Dc Ann Measurements Intervals [place] Rate: 81 P: 59 [place]: 173 QRS: 3 QRSD: 94 T: 6 QT: 377 QTc: 415 Interpretive Statements SINUS RHYTHM Electronically Signed On 03-06-2019 11:34:27 EDT by Dc Ann
== END 2019-02-28 02:30 | disposition short-term general hospital (02) | DRG 175 ==
LOC: EMEROOARM 18:18 → ICNU 22:43
PROVIDERS: ADMIT Family Medicine; ATTEND Family Medicine